=== PATIENT | female | born 1970 | race Caucasian/White ===

== ENCOUNTER 2021-11-04 08:38 | Emergency (ER) | payer BC, OTHER ==
[~2021-11-04] VITALS: Ht 160 cm; Wt 68.0 kg
[~2021-11-04 08:38] MED LIST: toradol
[2021-11-04] MEDS ORDERED: SODIUM CHLORIDE 0.9% 1000ML 1,000 ML IV STA (09:11)
[2021-11-04] MEDS ORDERED: KETOROLAC TROMETHAMINE 30 MG/ML VIAL IV STA (09:11)
[2021-11-04] MEDS ORDERED: DIPHENHYDRAMINE HCL INJ 50 MG/ML VIAL IV ONE (09:15)
[2021-11-04] MEDS ORDERED: METOCLOPRAMIDE HCL 10 MG/2ML VIAL IV ONE (09:15)
[2021-11-04 09:48] LABS: STREPTOCOCCUS GRP A ANTIGEN NEGATIVE (NEGATIVE)
== END 2021-11-04 11:12 | disposition home or self-care (01) ==
LOC: ER 08:48
DX: R50.9 Fever, unspecified (principal); U07.1 COVID-19; R51.9 Headache, unspecified; I10 Essential (primary) hypertension; E03.9 Hypothyroidism, unspecified
CPT/HCPCS: 83518; 87070; 99282; J1200; J1885; J2765; J7030; U0002